=== PATIENT | male | born 1935 | race Caucasian/White ===

== ENCOUNTER 2016-12-18 19:48 | Inpatient (IN) | payer OTHER ==
[2016-12-18] MEDS: FENTANYL INJECTION 500 MCG in DEXTROSE 5%-WATER - 90 ML IJ SCH ×2 (19:15→23:59)
[2016-12-18] MEDS ORDERED: ALBUTEROL SO4 0.083% IH SOL 2.5 MG/3 ML VIAL.NEB. NEB ONE (20:01)
[2016-12-18] MEDS ORDERED: methylPREDNISolone NA SUCC 125 MG/2 ML VIAL IVPB ONE (20:01)
[2016-12-18] MEDS ORDERED: IPRATROPIUM BR 0.02% 0.5 MG/2.5 ML VIAL.NEB. NEB ONE (20:01)
[2016-12-18] MEDS ORDERED: VANCOMYCIN 1,000 MG in DEXTROSE 5%-WATER - 250 ML IVPB ONE (20:04)
[2016-12-18] MEDS ORDERED: PIPERACILLIN/TAZOB 3.375 GM/50 ML PRE-DOCKED IVPB ONE (20:04)
--- NOTE | 2016-12-18 20:26 | PDOC ---
History of Present Illness - History of Present Illness Initial Comments: 12/18/16 20:49 Patient is an 81 year old male with significant medical hx of dementia, COPD, HTN, DM, UTIs, PNA, BPH and CAD who has been sent to the ED via EMS from [facility] for respiratory distress, lethargy, and decreased mental status. Patient was last seen well by niece yesterday who reports that the patient was talkative. Today the patient began becoming increasingly short of breath with labored breathing and decreased mental status. EMS reports that upon arrival the patient's O2Sat was 83% on room air and heart rate in the 100s. Patient is unable to provide history due to lethargy. <Bernadette Salinas - Last Filed: 12/18/16 20:49> <Gregg Garcia - Last Filed: 12/22/16 08:08> - General Stated Complaint: RESPIRATORY Time Seen by Provider: 12/18/16 19:52 Past History <Bernadette Salinas - Last Filed: 12/18/16 20:49> - Past Medical History COPD: Yes Dementia: Yes Diabetes: Yes HTN: Yes - Psycho/Social/Smoking Cessation Hx Anxiety: No Suicidal Ideation: No Smoking History: Unknown if ever smoked Have you smoked in the past 12 months: No Hx Alcohol Use: No Drug/Substance Use Hx: No <Gregg Garcia - Last Filed: 12/22/16 08:08> - Past Medical History Allergies/Adverse Reactions: Allergies Allergy/AdvReac Type Severity Reaction Status Date / Time No Known Allergies Allergy Verified 12/18/16 21:12 Home Medications: Ambulatory Orders Albuterol 0.083% Nebulizer Kalpana [Ventolin 0.083% Nebulizer Soln -] 1 inh IN Q4H PRN 08/19/15 Aspirin [ASA -] 81 mg PO DAILY 08/19/15 Enalapril Maleate [Vasotec -] 5 mg PO DAILY 08/19/15 Fluticasone Propionate [Flovent Hfa] 2 inh IH BID 08/19/15 Insulin Detemir [Levemir Flextouch] 47 unit SQ AM 12/07/15 Acetaminophen [Tylenol] 2 tab PO Q6H PRN 12/09/15 Insulin Aspart [Novolog] 0 unit SQ BID 12/09/15 Insulin Detemir [Levemir Flextouch] 15 unit SQ ACDIN 07/07/16 Tamsulosin HCl [Flomax] 0.4 mg PO DAILY 07/07/16 Review of Systems - Review of Systems Comments:: 12/18/16 20:46 Patient unable to provide ROS. <Bernadette Salinas - Last Filed: 12/18/16 20:49> *Physical Exam - Physical Exam Comments: 12/18/16 20:43 GENERAL: Awake, ill appearing, responsive to tactile stimuli, in moderate distress HEAD: No signs of trauma EYES: PERRLA, EOMI, sclera anicteric, conjunctiva clear ENT: Auricles normal inspection, hearing grossly normal, nares patent, oropharynx clear without exudates. Moist mucosa NECK: Normal ROM, supple, no lymphadenopathy, JVD, or masses LUNGS: Tachypneic to mid twenties. Diminished breath sounds bilaterally. Labored breathing. HEART: Regular rate and rhythm, normal S1 and S2, no murmurs, rubs or gallops ABDOMEN: Soft, nontender, normoactive bowel sounds. No guarding, no rebound. No masses EXTREMITIES: Normal range of motion, no edema. No clubbing or cyanosis. No cords, erythema, or tenderness NEUROLOGICAL: Cranial nerves II through XII grossly intact. Normal speech, normal gait SKIN: Cool to touch. Dry, normal turgor, no rashes or lesions noted. ENDOCRINE: No increased thirst. No abnormal weight change. HEMATOLOGIC/LYMPHATIC: No anemia, easy bleeding, or history of blood clots. ALLERGIC/IMMUNOLOGIC: No hives or skin allergy. <Bernadette Salinas - Last Filed: 12/18/16 20:49> Procedures - Intubation Time of Intubation: 23:15 Intubation Method: orotracheal Blade used: Mac Tube Size (Fr): 7.5 Medications: Etomidate, Succinylcholine Tube position @ lip (cm): 22 Tube position confirmed by: Direct visualization, CO2 detector, Breath sounds Breath Sounds after Intubation: equal Intubation Complications: no complications Post Intubation Xray: Yes (ordered) <Gregg Garcia - Last Filed: 12/22/16 08:08> Heart Score/ECG Review #1 ECG reviewed & interpreted by me at: 20:15 12/18/16 20:26 NSR 95, no std/gus, normal axis, normal intervals, QTC 427 msec <Gregg Garcia - Last Filed: 12/22/16 08:08> ED Treatment Course - RADIOLOGY Radiograph Interpretation: 12/18/16 20:42 Chest X-Ray Impression: Interval mild bibasal atelectatic changes, cannot rule out infiltrates. Reported By: Liliya Hurd MD <Bernadette Salinas - Last Filed: 12/18/16 20:49> - LABORATORY CBC & Chemistry Diagram: 12/19/16 20:40 12/19/16 20:40 - RADIOLOGY Radiology Studies Ordered: Category Date Time Status CHEST X-RAY PORTABLE* [RAD] Stat Radiology 12/18/16 20:00 Completed <Gregg Garcia - Last Filed: 12/22/16 08:08> Medical Decision Making - Medical Decision Making 12/18/16 20:25 A portion of this note was documented by scribe services under my direction. I have reviewed the details of the note, within reason, and agree with the documentation with the following case summary and management plan written by me. Patient treated in the ED. Nursing notes are reviewed and incorporated into the medical decision-making. Vital signs reviewed. Peripheral IV access obtained by the nurse, laboratory studies are drawn and sent, reviewed and interpreted by myself. 81 year old male with past medical history of dementia, hypotension, diabetes, COPD, pneumonia, indwelling Manuel catheter, neurogenic bladder presents by EMS from long-term [facility] for respiratory distress. Patient's niece, Kaylin , healthcare proxy at the bedside. The patient was noted to have increasing respiratory distress today and decreasing mental status. Patient is unable to verbalize any more given his lethargy. The patient is hypertensive and ill-appearing and with hypoxemia. Differential includes COPD exacerbation, hypercapnic respiratory failure, pneumonia, sepsis, septic shock. We'll need to give IV fluids and initiate empiric antibiotics. Nebs, IV site Metro. Patient is ill-appearing and will need consideration for ICU. Patient's mental status is decreased and BiPAP may be difficult option given his mental status. We'll obtain an ABG to assess for his CO2 levels. At this time, we'll observe patient for respiratory status, and if worsens, we'll need to check code status and potentially intubate. 12/18/16 22:25 Chest x-ray reviewed. Interval mild bibasilar atelectatic changes. Cannot rule out infiltrates. CBC, BMP 12/18/16 20:30 12/18/16 20:30 CMP Sodium 142 mmol/L (136-145) 12/18/16 20:30 Potassium 4.6 mmol/L (3.5-5.1) 12/18/16 20:30 Chloride 101 mmol/L (98-107) 12/18/16 20:30 Carbon Dioxide 26 mmol/L (21-32) D 12/18/16 20:30 Anion Gap 15 (8-16) 12/18/16 20:30 BUN 26 mg/dL (7-18) H D 12/18/16 20:30 Creatinine 1.4 mg/dL (0.7-1.3) H D 12/18/16 20:30 Creat Clearance w eGFR 48.64 (>60) 12/18/16 20:30 Random Glucose 99 mg/dL (74-106) D 12/18/16 20:30 Lactic Acid 7.867 mmol/L (0.4-2.0) H* 12/18/16 20:30 Calcium 8.9 mg/dL (8.5-10.1) 12/18/16 20:30 Total Bilirubin 0.9 mg/dL (0.2-1.0) D 12/18/16 20:30 AST 61 U/L (15-37) H D 12/18/16 20:30 ALT 32 U/L (12-78) 12/18/16 20:30 Alkaline Phosphatase 97 U/L (45-117) D 12/18/16 20:30 Creatine Kinase 162 IU/L (39-308) D 12/18/16 20:30 Creatine Kinase Index 1.2 % (0.0-5.0) 12/18/16 20:30 CK-MB (CK-2) 1.916 ng/ml (0.5-3.6) 12/18/16 20: CK-MB (CK-2) Rel Index Cancelled 12/18/16 20:30 Troponin I 0.03 ng/ml (0.00-0.05) D 12/18/16 20:30 B-Natriuretic Peptide 90.46 pg/ml (5-450) 12/18/16 20:30 Total Protein 7.5 g/dl (6.4-8.2) 12/18/16 20:30 Albumin 3.3 g/dl (3.4-5.0) L 12/18/16 20:30 ABG pending. Urine positive for urinary tract infection. Patient was given 2 L of IV fluids which improved the blood pressures to 90s over 60s. Patient's mentation is slightly better and opens eyes to verbal stimuli. However, does not answers questions. The patient will be better off in the intensive care unit. Case discussed with ICU nurse practitioner Dax which is the patient to the hospital for further evaluation. Case discussed with Dr. Hubbard who accepts the patient to his service. At this time, the patient is protecting his airway and will defer on intubation at this time. 12/18/16 23:18 Pt's ABG noted. His mental status will not improving. Likely hypercarbic respiratory failure and metabolic acidosis. Given condition, decision was made to intubate the patient. Given lactic acidosis, pt was given 2 amps of sodium bicarb prior to intubation. Pt given etomidate and succylcholine Grade 1 view with MAC 3 blade on 1st attempt, successfully intubated. Bilateral breath sounds on auscultation and good color change on ETT Portable chest xray ordered. Fetanyl sedation ordered. <Gregg Garcia - Last Filed: 12/22/16 08:08> *DC/Admit/Observation/Transfer - Attestations Scribe Attestion: 12/18/16 20:46 Documentation prepared by Bernadette Salinas, acting as medical records director for Gregg Garcia MD. <Bernadette Salinas - Last Filed: 12/18/16 20:49> - Discharge Dispostion Admit: Yes <Gregg Garcia - Last Filed: 12/22/16 08:08> Diagnosis at time of Disposition: Pneumonia Qualifiers: Pneumonia type: due to unspecified organism Laterality: unspecified laterality Lung location: unspecified part of lung Qualified Code(s): J18.9 - Pneumonia, unspecified organism Sepsis Qualifiers: Sepsis type: sepsis due to unspecified organism Qualified Code(s): A41.9 - Sepsis, unspecified organism UTI (urinary tract infection) Qualifiers: Urinary tract infection type: site unspecified Hematuria presence: without hematuria Qualified Code(s): N39.0 - Urinary tract infection, site not specified - Discharge Dispostion Disposition: Condition at time of disposition: Guarded - Referrals
[2016-12-18] MEDS ORDERED: methylPREDNISolone NA SUCC 125 MG/2 ML VIAL ONE (20:50)
[2016-12-18] MEDS ORDERED: VANCOMYCIN 1 GRAM (PRE-DOCKED) 250 ML IVPB ONE (20:50)
[2016-12-18] MEDS ORDERED: AZITHROMYCIN IVPB 500 MG in DEXTROSE 5%-WATER - 250 ML IVPB ONE (20:52)
[2016-12-18] MEDS ORDERED: SODIUM CHLORIDE 1,000 ML IV SCH (21:00)
[2016-12-18 21:15] LABS: URINE APPEARANCE CLEAR; URINE BILIRUBIN NEGATIVE (NEGATIVE); URINE COLOR YELLOW; URINE GLUCOSE (UA) NEGATIVE (NEGATIVE); URINE KETONE NEGATIVE (NEGATIVE); URINE NITRITE NEGATIVE (NEGATIVE); URINE UROBILINOGEN 2.0 E.U/dl E.U./dl (0.2-1.0)
[2016-12-18 21:16] LABS: MCH 27.3 pg (25.7-33.7); MCHC 30.7 g/dl (32.0-35.9); MEAN CELL VOLUME 89.1 fl (80-96); MEAN PLT VOLUME 7.3 fl (7.5-11.1); PLATELET COUNT 307 K/MM3 (134-434); RDW 16.5 % (11.9-15.9); URINE BLOOD 1+ (NEGATIVE); URINE LEUK ESTERASE 1+ (NEGATIVE); URINE PROTEIN 1+ (NEGATIVE)
[2016-12-18 21:18] LABS: URINE BACTERIA RARE /hpf (NONE SEEN); URINE MUCUS RARE; URINE RBC 23 /hpf (0-3); URINE WBC 28 /hpf (3-5); YEAST FEW
[2016-12-18 21:21] LABS: WHITE BLOOD COUNT 32.8 K/mm3 (4.0-10.0)
[2016-12-18 21:31] LABS: INR 1.31 (0.82-1.09); PROTHROMBIN TIME (PATIENT) 14.5 SEC (9.98-11.88)
[2016-12-18 21:33] LABS: ACTIVATED PTT 31.5 SECONDS (26.9-34.4)
[2016-12-18 21:40] LABS: ALBUMIN 3.3 g/dl (3.4-5.0); BILIRUBIN,TOTAL 0.9 mg/dL (0.2-1.0); CALCIUM 8.9 mg/dL (8.5-10.1); COCKROFT - GAULT 33.45; CREATININE 1.4 mg/dL (0.7-1.3); TOT PROT 7.5 g/dl (6.4-8.2)
[2016-12-18 21:42] LABS: TROPONIN I 0.03 ng/ml (0.00-0.05)
[2016-12-18 22:04] LABS: METAMYELOCYTE 1 % (0-2)
[2016-12-18] MEDS ORDERED: AZITHROMYCIN IVPB 250 ML IVPB ONE (22:04)
[2016-12-18 22:05] LABS: ANISOCYTOSIS 1+; HYPOCHROMIA 1+; PLATELET COMMENT2 NO CLOTTING DETECTED; PLATELET ESTIMATE ADEQUATE (NORMAL)
[2016-12-18] MEDS ORDERED: PIPERACILLIN/TAZOB 3.375 GM 50 ML IVPB ONE (22:05)
[2016-12-18 22:43] LABS: ARTERIAL BLD GAS O2 SATURATION 98.4 % (90-98.9); ARTERIAL BLOOD GAS BASE EXCESS -8.6 meq/l (-2-2); ARTERIAL BLOOD GAS HCO3 21.1 meq/L (22-26)
[2016-12-18 22:44] LABS: ALLENS TEST POSITIVE; ART PUNCT SITE LEFT RADIAL; LPM/O2% 100%; METHEMOGLOBIN 1.2 % (0.4-1.5); PT. ON O2? YES; TYPE OF O2 NONREBREATHER
[2016-12-18] MEDS ORDERED: RAPID SEQUENCE INTUBATION KIT NR ONE (23:00)
[2016-12-18] MEDS ORDERED: SODIUM BICARBONATE 8.4% 50 MEQ/50 ML VIAL ONE ×2 (23:04)
[2016-12-18] MEDS ORDERED: ETOMIDATE 20 MG/10 ML AMPUL IVPUSH ONE (23:16)
[2016-12-18] MEDS ORDERED: SODIUM BICARBONATE 8.4% 50 MEQ/50 ML DISP.SYRIN IVPUSH ONE ×2 (23:16→23:17)
[2016-12-18] MEDS ORDERED: SUCCINYLCHOLINE CHLORIDE 200 MG/10 ML VIAL IVPUSH ONE (23:16)
[2016-12-19] MEDS ORDERED: SODIUM CHLORIDE 1,000 ML IV STA ×2 (00:06→01:31)
[2016-12-19] MEDS ORDERED: DEXTROSE 5%-NORMAL SALINE 1,000 ML IV SCH (00:30)
[2016-12-19 01:45] LABS: ALLENS TEST POSITIVE; ART PUNCT SITE LEFT RADIAL; ARTERIAL BLD GAS O2 SATURATION 99.1 % (90-98.9); ARTERIAL BLOOD GAS BASE EXCESS -8.6 meq/l (-2-2); ARTERIAL BLOOD GAS HCO3 20.7 meq/L (22-26); LPM/O2% 100%; MECH. VENT. YES; PT. ON O2? YES; TYPE OF O2 MECH VENT; VENT RATE 16; VT/PRESS 400
[2016-12-19] MEDS ORDERED: SODIUM CHLORIDE 1,000 ML IV SCH (01:45)
[2016-12-19 01:46] LABS: ARTERIAL BLOOD GAS pH 7.12 (7.35-7.45)
[2016-12-19] MEDS: PANTOPRAZOLE SODIUM 80 MG in SODIUM CHLORIDE 100 ML IVPB SCH ×3 (02:00→22:37)
[2016-12-19] MEDS: FENTANYL INJECTION 500 MCG in DEXTROSE 5%-WATER - 90 ML IJ SCH ×2 (02:00→09:17)
[2016-12-19] MEDS ORDERED: HYDROCORTISONE SOD SUCCINATE 100 MG/2 ML VIAL IVPB SCH (02:00)
--- NOTE | 2016-12-19 02:06 | CONSULT ---
Consult Consult Specialty:: Pulmonary Critical Care Reason for Consultation:: Acute Respiratory Failure s/p intubation. Sepsis - History of Present Illness Chief Complaint: Altered mental status, Increased Work of Breathing, Tachypnea, Hypoxia History of Present Illness: Patient is an 81 year old male with PMHX of COPD, HTN, DM, UTI, PNA, BPH and CAD who has been sent to the ED via EMS from [facility] for respiratory distress, lethargy, and decreased mental status. Patient was last seen well by preeti on who reports that the patient was talkative. On 12/18 the patient began becoming increasingly short of breath with labored breathing and decreased mental status. EMS reports that upon arrival the patient's Spo2 was 83 % on room air and heart rate in the 100s. Patient is unable to provide history due to lethargy. Upon arrival to ED pt was placed on 100% NRB and given nebs and steroids for working dx of pneumonia given physical exam and leukocytosis. ABG obtained which revealed respirtory acidosis with pH of 7.10 and PCO2 of 70. Pt then intubated. CT abd obtained as pt with marked distended abdomen and hypoactive bowel sounds. Pt then transferred to ICU for further medical care. Upon arrival NGT inserted and moderate amount of dark, coffee ground drainage appreciated. NGT placed to low continuous wall suction. NS 1L bolus given for SBP 74 with MAP 50's. Additional IV inserted for more access. Given distended bowel loops on CT scan and marked elevated leukocytosis, flagyl added to double cover anaerobic gut bacteria. - History Source History Provided By: Medical Record Limitations to Obtaining History: Clinical Condition - Alcohol/Substance Use Hx Alcohol Use: No - Smoking History Smoking history: Unknown if ever smoked Have you smoked in the past 12 months: No Home Medications - Allergies Allergies/Adverse Reactions: Allergies Allergy/AdvReac Type Severity Reaction Status Date / Time No Known Allergies Allergy Verified 12/18/16 21:12 - Home Medications Home Medications: Ambulatory Orders Aspirin [ASA -] 81 mg PO DAILY 08/19/15 Enalapril Maleate [Vasotec -] 5 mg PO DAILY 08/19/15 Fluticasone Propionate [Flovent Hfa] 2 inh IH BID 08/19/15 RX: Albuterol 0.083% Nebulizer Kalpana [Ventolin 0.083% Nebulizer Soln -] 1 inh IN Q4H PRN 08/19/15 Insulin Detemir [Levemir Flextouch] 47 unit SQ AM 12/07/15 Acetaminophen [Tylenol] 2 tab PO Q6H PRN 12/09/15 Insulin Aspart [Novolog] 0 unit SQ BID 12/09/15 Insulin Detemir [Levemir Flextouch] 15 unit SQ ACDIN 07/07/16 Tamsulosin HCl [Flomax] 0.4 mg PO DAILY 07/07/16 Physical Exam Vital Signs: Vital Signs Temperature 97.6 F 12/18/16 19:50 Pulse Rate 97 H 12/18/16 19:50 Respiratory Rate 16 12/19/16 01:15 Blood Pressure 84/43 12/18/16 19:50 O2 Sat by Pulse Oximetry (%) 89 L 12/18/16 19:50 Constitutional: Yes: No Distress, Calm, Thin Eyes: Yes: PERRL HENT: Yes: Atraumatic, Normocephalic Neck: Yes: Supple, Trachea Midline Cardiovascular: Yes: Tachycardia, S1, S2 Respiratory: Yes: Diminished, Mechanically Ventilated, Rhonchi, Wheezes Gastrointestinal: Yes: Distention, Hematemesis, Hypoactive Bowel Sounds, Other ( tympanny to percussion) ...Rectal Exam: Yes: WNL Renal/: Yes: Other (Suprapubic catheter present draining dark maria a urine; mucopurlent drainage to insertion site) Extremities: Yes: Cool Edema: No Peripheral Pulses WNL: Yes Integumentary: Yes: Pressure Ulcer (Stage 1), Skin Tear (Excoriation to abdomen and IV insertion site) Neurological: Yes: Other (Sedated) Imaging - Results Chest X-ray: Report Reviewed, Image Reviewed Cat Scan: Image Reviewed (Distended large bowel loops, large fecal bolus in rectal vault) Problem List - Problems (1) Pneumonia Code(s): J18.9 - PNEUMONIA, UNSPECIFIED ORGANISM Qualifiers: Pneumonia type: due to unspecified organism Laterality: unspecified laterality Lung location: unspecified part of lung Qualified Code(s): J18.9 - Pneumonia, unspecified organism (2) Sepsis Code(s): A41.9 - SEPSIS, UNSPECIFIED ORGANISM Qualifiers: Sepsis type: sepsis due to unspecified organism Qualified Code(s): A41.9 - Sepsis, unspecified organism (3) UTI (urinary tract infection) Code(s): N39.0 - URINARY TRACT INFECTION, SITE NOT SPECIFIED Qualifiers: Urinary tract infection type: site unspecified Hematuria presence: without hematuria Qualified Code(s): N39.0 - Urinary tract infection, site not specified (4) Bowel obstruction Code(s): K56.60 - UNSPECIFIED INTESTINAL OBSTRUCTION Qualifiers: Intestinal obstruction type: fecal impaction Qualified Code(s): K56.41 - Fecal impaction (5) Leukocytosis (leucocytosis) Code(s): D72.829 - ELEVATED WHITE BLOOD CELL COUNT, UNSPECIFIED (6) Lactic acid acidosis Code(s): E87.2 - ACIDOSIS (7) Metabolic acidosis Code(s): E87.2 - ACIDOSIS Assessment/Plan A: Patient is an 81 year old male with significant medical hx of dementia, COPD , HTN, DM, UTIs, PNA, BPH and CAD who has been sent to the ED via EMS from [facility] for respiratory distress, lethargy, and decreased mental status. Pt intubated for increased WOB, hypoxia and hypercapneic respiratory failure. Pt subsequently transferred to ICU for further medical care. P: -Fentanyl gtt for RASS (-)2-(-)3 -Vent bundle, VAP prophylaxis -Duonebs q6hrs -serial ABG and adjust vent as needed for goal pH 7.35-7.45 -suction PRN -f/u viral PCR swab and Respiratory culture -repeat troponin x2, if continues to uptrend consider Cardiology Consult -NS @ 100cc/hr maintenance -NS 1 L bolus; if remains hypotensive, will add peripheral dopamine for pressor -OGT to low wall suction -protonix gtt -serial cbc, if hgb<7.0 will transfuse -NPO -fleets enema -Consider GI Consult -Manuel to bsd -bacitracin to suprapubic insertion site -Cont antibiotics, flagyl added given abdominal distention and degree of leukocytosis -f/u cultures and narrow as possible -cont to trend serial lactate -continue sepsis dose steroids -fingersticks blood glucose q6hrs -insulin for goal FSBS 140-180 -heparin for dvt prophylaxis -Turn and position q2hrs as pt with Stage 1 pressure ulcer from outside facility Thank you for this interesting consult. Pt is critically ill. CCT 45 mins not including procedures
[2016-12-19 02:24] LABS: ARTERIAL BLD GAS O2 SATURATION 95.5 % (90-98.9); ARTERIAL BLOOD GAS BASE EXCESS -9.3 meq/l (-2-2)
[2016-12-19 02:25] LABS: ALLENS TEST POSITIVE; ART PUNCT SITE LEFT RADIAL; ARTERIAL BLOOD GAS pH 7.17 (7.35-7.45); LPM/O2% 60%; MECH. VENT. YES; PT. ON O2? YES; TYPE OF O2 MECH VENT; VENT RATE 30; VT/PRESS 400
[2016-12-19 02:26] LABS: ARTERIAL BLOOD GAS HCO3 18.6 meq/L (22-26)
[2016-12-19] MEDS: HYDROCORTISONE SOD SUCCINATE 100 MG/2 ML VIAL IVPB SCH ×4 (02:40→19:45)
[2016-12-19] MEDS: METRONIDAZOLE 500 MG PREMIXED 100 ML IVPB SCH ×3 (03:00→17:19)
[2016-12-19] MEDS: DOPAMINE 400 MG/D5W - 250 ML IVPB SCH ×2 (03:05→18:27)
[2016-12-19] MEDS ORDERED: SODIUM CHLORIDE 500 ML IV STA ×2 (03:05→04:31)
[2016-12-19 03:19] LABS: MCH 27.5 pg (25.7-33.7); MCHC 30.2 g/dl (32.0-35.9); MEAN CELL VOLUME 91.1 fl (80-96); MEAN PLT VOLUME 7.5 fl (7.5-11.1); PLATELET COUNT 208 K/MM3 (134-434); RDW 16.6 % (11.9-15.9); WHITE BLOOD COUNT 16.3 K/mm3 (4.0-10.0)
[2016-12-19 03:41] LABS: ALBUMIN 2.4 g/dl (3.4-5.0); BILIRUBIN,TOTAL 1.1 mg/dL (0.2-1.0); CALCIUM 7.1 mg/dL (8.5-10.1); CREATININE 1.4 mg/dL (0.7-1.3); TOT PROT 5.3 g/dl (6.4-8.2)
[2016-12-19] MEDS ORDERED: SODIUM PHOSPHATE/NA BIPHOS 133 ML ENEMA PR ONE (03:57)
[2016-12-19] MEDS ORDERED: MINERAL OIL ENEMA 133 ML ENEMA PR ONE (03:57)
[2016-12-19 06:30] LABS: MCH 27.7 pg (25.7-33.7); MCHC 30.9 g/dl (32.0-35.9); MEAN CELL VOLUME 89.7 fl (80-96); MEAN PLT VOLUME 7.5 fl (7.5-11.1); PLATELET COUNT 235 K/MM3 (134-434); RDW 16.4 % (11.9-15.9)
[2016-12-19] MEDS: ALBUTEROL SO4 2.5/IPRATROPIUM 0.5 INH SOL 3 ML VIAL.NEB. NEB SCH ×3 (06:30→18:09)
[2016-12-19 07:10] LABS: ALBUMIN 2.4 g/dl (3.4-5.0); BILIRUBIN,TOTAL 1.3 mg/dL (0.2-1.0); CALCIUM 7.1 mg/dL (8.5-10.1); CREATININE 1.6 mg/dL (0.7-1.3); TOT PROT 5.4 g/dl (6.4-8.2)
[2016-12-19 07:41] LABS: ARTERIAL BLD GAS O2 SATURATION 94.3 % (90-98.9); ARTERIAL BLOOD GAS BASE EXCESS -11.3 meq/l (-2-2); ARTERIAL BLOOD GAS HCO3 16.9 meq/L (22-26)
[2016-12-19 07:50] LABS: ALLENS TEST POSITIVE; ART PUNCT SITE LEFT RADIAL; LPM/O2% 70%; MECH. VENT. ESPRIT; PT. ON O2? YES; TYPE OF O2 MEC.VENT
[2016-12-19 07:51] LABS: VENT RATE 14; VT/PRESS 400
[2016-12-19 07:56] LABS: ARTERIAL BLOOD GAS pH 7.14 (7.35-7.45)
--- NOTE | 2016-12-19 08:02 | CON.CARD ---
Consult Consult Specialty:: Cardiology Referred by:: Dr. Hubbard Reason for Consultation:: hypotension - History of Present Illness History of Present Illness: History was obtained by EMR. Pt is intubated and sedated. 81 year old male with PMHX of COPD, HTN, DM, UTI, PNA, BPH and reportedly CAD who has been sent to the ED via EMS from [facility] for respiratory distress, lethargy, and decreased mental status. Patient was last seen well by nireema on who reports that the patient was talkative. On 12/18 the patient began becoming increasingly short of breath with labored breathing and decreased mental status. EMS reports that upon arrival the patient's Spo2 was 83% on room air and heart rate in the 100s. He was hypoxic, ABG showed lactic acidosis and he was intubated. ABG obtained which revealed respirtory acidosis with pH of 7.10 and PCO2 of 70. CT abd obtained as pt with marked distended abdomen and hypoactive bowel sounds. Pt then transferred to ICU for further medical care. NGT showed moderate amount of dark, coffee ground drainage appreciated. Currently, he is on Dopamine 10mcg/kg/min. Fentanyl. Telemetry shows sinus tachycardia - History Source History Provided By: Medical Record - Past Medical History Cardio/Vascular: Yes: CAD Pulmonary: Yes: COPD Renal/: Yes: UTI Endocrine: Yes: Diabetes Mellitus - Alcohol/Substance Use Hx Alcohol Use: No - Smoking History Smoking history: Unknown if ever smoked Have you smoked in the past 12 months: No Home Medications - Allergies Allergies/Adverse Reactions: Allergies Allergy/AdvReac Type Severity Reaction Status Date / Time No Known Allergies Allergy Verified 12/18/16 21:12 - Home Medications Home Medications: Ambulatory Orders Albuterol 0.083% Nebulizer Kalpana [Ventolin 0.083% Nebulizer Soln -] 1 inh IN Q4H PRN 08/19/15 Aspirin [ASA -] 81 mg PO DAILY 08/19/15 Enalapril Maleate [Vasotec -] 5 mg PO DAILY 08/19/15 Fluticasone Propionate [Flovent Hfa] 2 inh IH BID 08/19/15 Insulin Detemir [Levemir Flextouch] 47 unit SQ AM 12/07/15 Acetaminophen [Tylenol] 2 tab PO Q6H PRN 12/09/15 Insulin Aspart [Novolog] 0 unit SQ BID 12/09/15 Insulin Detemir [Levemir Flextouch] 15 unit SQ ACDIN 07/07/16 Tamsulosin HCl [Flomax] 0.4 mg PO DAILY 07/07/16 Family Disease History - Family Disease History Family History: Unable to Obtain Review of Systems Unable to obtain ROS, reason: Intubated. Unresponsive Vital Signs: Vital Signs Temperature 95.8 F L 12/19/16 06:30 Pulse Rate 117 H 12/19/16 06:30 Respiratory Rate 21 12/19/16 06:47 Blood Pressure 108/84 12/19/16 06:30 O2 Sat by Pulse Oximetry (%) 90 L 12/19/16 04:00 Constitutional: Yes: Well Nourished Neck: Yes: WNL Respiratory: Yes: Regular, CTA Bilaterally, Mechanically Ventilated Gastrointestinal: Yes: Distention, Hypoactive Bowel Sounds Renal/: Yes: WNL Cardiovascular: Yes: Tachycardia JVD: No Carotid Bruit: No Heart Sounds: Yes: S1, S2 Edema: No (Warm) - Other Data Labs, Other Data: CBC, BMP 12/19/16 05:30 12/19/16 05:30 INR, PTT INR 1.31 (0.82-1.09) H 12/18/16 20:30 Troponin, BNP 12/18/16 12/18/16 20:30 20:30 Troponin I 0.03 D B-Natriuretic Peptide 90.46 ABG and lactate from this morning was reviewed. NSR no STT changes Imaging - Results Chest X-ray: Report Reviewed Cat Scan: Other (Report in chart noted.) EKG: Image Reviewed Problem List - Problems (1) Bowel obstruction Code(s): K56.60 - UNSPECIFIED INTESTINAL OBSTRUCTION Qualifiers: Intestinal obstruction type: fecal impaction Qualified Code(s): K56.41 - Fecal impaction (2) Lactic acid acidosis Code(s): E87.2 - ACIDOSIS (3) Leukocytosis (leucocytosis) Code(s): D72.829 - ELEVATED WHITE BLOOD CELL COUNT, UNSPECIFIED (4) Sepsis Code(s): A41.9 - SEPSIS, UNSPECIFIED ORGANISM Qualifiers: Sepsis type: sepsis due to unspecified organism Qualified Code(s): A41.9 - Sepsis, unspecified organism Assessment/Plan 81 M with sepsis, significant metabolic acidosis and possibly bowel obstruction or PNA. There is a reported history of CAD although not active at this time.ECG at presentation is normal and Telemetry shows no arrhythmias. Initial cardiac markers are normal. He remains hypotensive with Dopamine and would suggest switching to phenylephrine or vasopressin for more appropriate pressor support. Continue broad spectrum antibiotics for possible bowel source and follow abdominal imaging. Will see as needed.
--- NOTE | 2016-12-19 14:34 | CON.NEP ---
Consult Consult Specialty:: Nephrology Referred by:: Dr Hubbard Reason for Consultation:: NED - History of Present Illness History of Present Illness: 81 year old male from the [facility] admitted to the ICU and of now on ventilator and pressors. Pt being treated for ileus and possible infiltrates as seen on CT Scan that was done with IV and Oral contrast. PMHX of COPD, HTN, DM, UTI, PNA, BPH and CAD Dopamine at 13 mcg/kg/min Fio2 at 70% Urine output poor Pt was on Enalapril at the SNF Kidneys appeared normal and castelan was in the U bladder on the Ct Scan - History Source History Provided By: Medical Record Limitations to Obtaining History: Intubated - Past Medical History Cardio/Vascular: Yes: CAD Pulmonary: Yes: COPD Renal/: Yes: UTI Endocrine: Yes: Diabetes Mellitus - Alcohol/Substance Use Hx Alcohol Use: No - Smoking History Smoking history: Unknown if ever smoked Have you smoked in the past 12 months: No Home Medications - Allergies Allergies/Adverse Reactions: Allergies Allergy/AdvReac Type Severity Reaction Status Date / Time No Known Allergies Allergy Verified 12/18/16 21:12 - Home Medications Home Medications: Ambulatory Orders Albuterol 0.083% Nebulizer Kalpana [Ventolin 0.083% Nebulizer Soln -] 1 inh IN Q4H PRN 08/19/15 Aspirin [ASA -] 81 mg PO DAILY 08/19/15 Enalapril Maleate [Vasotec -] 5 mg PO DAILY 08/19/15 Fluticasone Propionate [Flovent Hfa] 2 inh IH BID 08/19/15 Insulin Detemir [Levemir Flextouch] 47 unit SQ AM 12/07/15 Acetaminophen [Tylenol] 2 tab PO Q6H PRN 12/09/15 Insulin Aspart [Novolog] 0 unit SQ BID 12/09/15 Insulin Detemir [Levemir Flextouch] 15 unit SQ ACDIN 07/07/16 Tamsulosin HCl [Flomax] 0.4 mg PO DAILY 07/07/16 Nephrology Consult - Height Height: 5 ft - Weight Weight: 136 lb 10.986 oz - BMI Body Mass Index (BMI): 26.6 - Lab Results CBC,BMP: CBC, BMP 12/19/16 05:30 12/19/16 05:30 Laboratory Tests 12/18/16 12/18/1612/19/17 20:30 20:30 05:30 WBC 32.8 H* D Band Neutrophils 22.0 H INR 1.31 H PTT (Actin FS) 31.5 ABG pH ABG pCO2 at Pt Temp ABG pO2 at Pt Temp ABG HCO3 ABG O2 Sat (Measured) Oxygen Flow Rate Lactic Acid 7.970 H* Calcium AST ALT Alkaline Phosphatase Total Protein Albumin 12/19/16 12/19/16 05:30 07:30 WBC Band Neutrophils INR PTT (Actin FS) ABG pH 7.14 L* ABG pCO2 at Pt Temp 51.6 H ABG pO2 at Pt Temp 107.0 H ABG HCO3 16.9 L ABG O2 Sat (Measured) 94.3 Oxygen Flow Rate 70% Lactic Acid Calcium 7.1 L AST 131 H D ALT 45 D Alkaline Phosphatase 63 Total Protein 5.4 L Albumin 2.4 L U/A: Laboratory Tests 12/18/16 20:30 Urine Color Yellow Urine Appearance Clear Ur Specific Preston 1.015 Urine Protein 1+ H Urine Blood 1+ H Ur Leukocyte Esterase 1+ H Urine RBC 23 Urine WBC 28 Anion Gap: Anion Gap Anion Gap 18 (8-16) H 12/19/16 05:30 - Imaging Chest X-ray: Report Reviewed X-ray: Report Reviewed Cat Scan: Report Reviewed EKG: Report Reviewed - Physical Examination Vital Signs: Vital Signs Temperature 98.2 F 12/19/16 13:55 Pulse Rate 123 H 12/19/16 13:55 Respiratory Rate 28 H 12/19/16 14:01 Blood Pressure 87/53 12/19/16 13:55 O2 Sat by Pulse Oximetry (%) 90 L 12/19/16 04:00 Constitutional: Yes: No Distress Cardiovascular: Yes: S1, S2 Respiratory: Yes: Other (Equal air entry B/L) Gastrointestinal: Yes: Other (Distended and soft) Edema: LLE: 1+, RLE: 1+ Neurological: Yes: Unresponsive Assessment/Plan Impression NED from septic shock in addition possible IV contrast use Sepsis from intraabdominal source and pneumonia Respiratory failure in pt with COPD and infiltrates Resp and Metabolic Acidosis HTN now hypotensive DM BPH CAD Anemia Hypocalcemia borderline when corrected Plan Urine for Spot Na and Cr Calcium Chloride IV X1 Add NaHCO3 to IVF but change to 1/2 NS with 2 ampules of NAHCO3 to each liter Renal and U Bladder US Avoid Nephrotoxic agents such as NSAIDs , further IV contrast etc Is and Os Await culture results Emipirc abx Thank You WIll follow Dr Lam
[2016-12-19 14:35] VITALS: BMI 26.6
[2016-12-19] MEDS ORDERED: CALCIUM CHLORIDE 10% 1 GM/10 ML *VIAL IVPUSH ONE (14:58)
[2016-12-19] MEDS ORDERED: CALCIUM CHLORIDE 1 GM/10 ML *DISP.SYRIN IVPUSH ONE ×2 (14:58→17:45)
--- NOTE | 2016-12-19 16:50 | HP ---
Admitting History and Physical - Primary Care Physician PCP: Hi Hubbard - Admission Chief Complaint: RESP DISTRESS/SEPSIS/PNA/UTI History of Present Illness: Patient is an 81 year old male with significant medical hx of dementia, COPD, HTN, DM, UTIs, PNA, BPH and CAD who has been sent to the ED via EMS from [facility] for respiratory distress, lethargy, and decreased mental status. Patient was last seen well by niece yesterday who reports that the patient was talkative. Today the patient began becoming increasingly short of breath with labored breathing and decreased mental status. EMS reports that upon arrival the patient's O2Sat was 83% on room air and heart rate in the 100s. Patient is unable to provide history due to lethargy. History Source: Medical Record - Past Medical History Cardiovascular: Yes: CAD Pulmonary: Yes: COPD Renal/: Yes: UTI Endocrine: Yes: Diabetes Mellitus - Smoking History Smoking history: Unknown if ever smoked Have you smoked in the past 12 months: No - Alcohol/Substance Use Hx Alcohol Use: No Home Medications - Allergies Allergies/Adverse Reactions: Allergies Allergy/AdvReac Type Severity Reaction Status Date / Time No Known Allergies Allergy Verified 12/18/16 21:12 - Home Medications Home Medications: Ambulatory Orders Albuterol 0.083% Nebulizer Kalpana [Ventolin 0.083% Nebulizer Soln -] 1 inh IN Q4H PRN 08/19/15 Aspirin [ASA -] 81 mg PO DAILY 08/19/15 Enalapril Maleate [Vasotec -] 5 mg PO DAILY 08/19/15 Fluticasone Propionate [Flovent Hfa] 2 inh IH BID 08/19/15 Insulin Detemir [Levemir Flextouch] 47 unit SQ AM 12/07/15 Acetaminophen [Tylenol] 2 tab PO Q6H PRN 12/09/15 Insulin Aspart [Novolog] 0 unit SQ BID 12/09/15 Insulin Detemir [Levemir Flextouch] 15 unit SQ ACDIN 07/07/16 Tamsulosin HCl [Flomax] 0.4 mg PO DAILY 07/07/16 Review of Systems - Review of Systems Constitutional: reports: Lethargy Eyes: reports: No Symptoms HENT: reports: No Symptoms Neck: reports: No Symptoms Cardiovascular: reports: Shortness of Breath Respiratory: reports: SOB Gastrointestinal: reports: No Symptoms Genitourinary: reports: Incontinence Musculoskeletal: reports: Muscle Weakness Integumentary: reports: Other Neurological: reports: Pre-Existing Deficit Endocrine: reports: Other Hematology/Lymphatic: reports: Other Psychiatric: reports: Other Physical Examination Vital Signs: Vital Signs Temperature 98.2 F 12/19/16 13:55 Pulse Rate 123 H 12/19/16 13:55 Respiratory Rate 28 H 12/19/16 14:01 Blood Pressure 87/53 12/19/16 13:55 O2 Sat by Pulse Oximetry (%) 96 12/19/16 16:03 Constitutional: Yes: Severe Distress Eyes: Yes: WNL HENT: Yes: WNL Neck: Yes: WNL Cardiovascular: Yes: Tachycardia, Pulse Irregular Respiratory: Yes: Mechanically Ventilated Gastrointestinal: Yes: WNL Renal/: Yes: Manuel Present Musculoskeletal: Yes: Muscle Weakness Extremities: Yes: Other Edema: Yes Edema: LLE: Trace, RLE: Trace Peripheral Pulses WNL: Yes Integumentary: Yes: Rash, Venous Stasis Changes Wound/Incision: Yes: Dressing Dry and Intact Neurological: Yes: Pre-Existing Deficit ...Motor Strength: LLE, RLE Psychiatric: Yes: Other Labs: CBC, BMP 12/19/16 05:30 12/19/16 05:30 Imaging - Results Chest X-ray: Report Reviewed Cat Scan: Report Reviewed Problem List - Problems (1) Lactic acid acidosis Code(s): E87.2 - ACIDOSIS (2) Leukocytosis (leucocytosis) Code(s): D72.829 - ELEVATED WHITE BLOOD CELL COUNT, UNSPECIFIED (3) Metabolic acidosis Code(s): E87.2 - ACIDOSIS (4) Pneumonia Code(s): J18.9 - PNEUMONIA, UNSPECIFIED ORGANISM Qualifiers: Pneumonia type: due to unspecified organism Laterality: unspecified laterality Lung location: unspecified part of lung Qualified Code(s): J18.9 - Pneumonia, unspecified organism (5) Sepsis Code(s): A41.9 - SEPSIS, UNSPECIFIED ORGANISM Qualifiers: Sepsis type: sepsis due to unspecified organism Qualified Code(s): A41.9 - Sepsis, unspecified organism (6) UTI (urinary tract infection) Code(s): N39.0 - URINARY TRACT INFECTION, SITE NOT SPECIFIED Qualifiers: Urinary tract infection type: site unspecified Hematuria presence: without hematuria Qualified Code(s): N39.0 - Urinary tract infection, site not specified (7) Respiratory distress Code(s): R06.00 - DYSPNEA, UNSPECIFIED Assessment/Plan INTUBATED SEDATED IV FLUIDS IV ABX SEPSIS PNA PULMONARY CONSULT ID CONSULT RENAL F/U GRAVE CONDITION
--- NOTE | 2016-12-19 16:59 | CONSULT ---
Consult Consult Specialty:: infectious diseases Reason for Consultation:: septic shock - History of Present Illness History of Present Illness: History was obtained by EMR. Pt is intubated and sedated. 81 year old male with PMHX of COPD, HTN, DM, UTI, PNA, BPH and reportedly CAD who has been sent to the ED via EMS from [facility] for respiratory distress, lethargy, and decreased mental status. Patient was last seen well by preeti on who reports that the patient was talkative. On 12/18 the patient began becoming increasingly short of breath with labored breathing and decreased mental status. EMS reports that upon arrival the patient's Spo2 was 83% on room air and heart rate in the 100s. He was hypoxic, ABG showed lactic acidosis and he was intubated. ABG obtained which revealed respirtory acidosis with pH of 7.10 and PCO2 of 70. CT abd obtained as pt with marked distended abdomen and hypoactive bowel sounds. patient now in icu on dopamine drip patient has suprapubic foleys catheter - History Source History Provided By: Medical Record Limitations to Obtaining History: Clinical Condition - Past Medical History Cardio/Vascular: Yes: CAD Pulmonary: Yes: COPD Renal/: Yes: UTI Endocrine: Yes: Diabetes Mellitus - Alcohol/Substance Use Hx Alcohol Use: No - Smoking History Smoking history: Unknown if ever smoked Have you smoked in the past 12 months: No Home Medications - Allergies Allergies/Adverse Reactions: Allergies Allergy/AdvReac Type Severity Reaction Status Date / Time No Known Allergies Allergy Verified 12/18/16 21:12 - Home Medications Home Medications: Ambulatory Orders Albuterol 0.083% Nebulizer Kalpana [Ventolin 0.083% Nebulizer Soln -] 1 inh IN Q4H PRN 08/19/15 Aspirin [ASA -] 81 mg PO DAILY 08/19/15 Enalapril Maleate [Vasotec -] 5 mg PO DAILY 08/19/15 Fluticasone Propionate [Flovent Hfa] 2 inh IH BID 08/19/15 Insulin Detemir [Levemir Flextouch] 47 unit SQ AM 12/07/15 Acetaminophen [Tylenol] 2 tab PO Q6H PRN 12/09/15 Insulin Aspart [Novolog] 0 unit SQ BID 12/09/15 Insulin Detemir [Levemir Flextouch] 15 unit SQ ACDIN 07/07/16 Tamsulosin HCl [Flomax] 0.4 mg PO DAILY 07/07/16 Review of Systems Unable to obtain ROS, reason: unable to obtain Physical Exam Vital Signs: Vital Signs Temperature 98.2 F 12/19/16 13:55 Pulse Rate 123 H 12/19/16 13:55 Respiratory Rate 28 H 12/19/16 16:08 Blood Pressure 87/53 12/19/16 13:55 O2 Sat by Pulse Oximetry (%) 96 12/19/16 16:03 Constitutional: Yes: Other Eyes: Yes: Conjunctiva Clear Neck: Yes: Supple Cardiovascular: Yes: S1, S2 Respiratory: Yes: Intubated, Mechanically Ventilated, Poor Air Entry Gastrointestinal: Yes: Distention, Tenderness, Other (tympaninc distended abdomen) Musculoskeletal: Yes: WNL Extremities: Yes: WNL Neurological: Yes: Other Psychiatric: Yes: Other Labs: CBC, BMP 12/19/16 05:30 12/19/16 05:30 Imaging - Results Chest X-ray: Report Reviewed, Image Reviewed Cat Scan: Report Reviewed, Image Reviewed Assessment/Plan this patient has intestinal ischemia the exact cause i do not know but i suspect low flow state is going on currently patient is critical and i have started patient on abx also chances that patient has uti Problem List - Problems (1) Pneumonia Code(s): J18.9 - PNEUMONIA, UNSPECIFIED ORGANISM Qualifiers: Pneumonia type: due to unspecified organism Laterality: unspecified laterality Lung location: unspecified part of lung Qualified Code(s): J18.9 - Pneumonia, unspecified organism (2) Sepsis Code(s): A41.9 - SEPSIS, UNSPECIFIED ORGANISM Qualifiers: Sepsis type: sepsis due to unspecified organism Qualified Code(s): A41.9 - Sepsis, unspecified organism (3) UTI (urinary tract infection) Code(s): N39.0 - URINARY TRACT INFECTION, SITE NOT SPECIFIED Qualifiers: Urinary tract infection type: site unspecified Hematuria presence: without hematuria Qualified Code(s): N39.0 - Urinary tract infection, site not specified (4) Bowel obstruction Code(s): K56.60 - UNSPECIFIED INTESTINAL OBSTRUCTION Qualifiers: Intestinal obstruction type: fecal impaction Qualified Code(s): K56.41 - Fecal impaction (5) Leukocytosis (leucocytosis) Code(s): D72.829 - ELEVATED WHITE BLOOD CELL COUNT, UNSPECIFIED (6) Lactic acid acidosis Code(s): E87.2 - ACIDOSIS (7) Metabolic acidosis Code(s): E87.2 - ACIDOSIS plan continue flagyl for now i have started patient on zosyn crucial will be hydration continue monitoring closely i might stop flagyl and zosyn and switch ot meropenam if patient does not show improvement also looking at the ct scan i am abit worried if he could have cdiff and that is why we will continue flagyl for now if patient has dirrhoea send for cdiff cc time 50 min
[2016-12-19] MEDS: SODIUM CHLORIDE 0.45% 1,000 ML with SODIUM BICARBONATE 8.4% - 100 MEQ IV SCH (17:25)
[2016-12-19] MEDS ORDERED: PIPERACILLIN/TAZOB 3.375 GM 3.375 GM in DEXTROSE 5%-WATER - 50 ML IVPB SCH (18:00)
[2016-12-19] MEDS: PIPERACILLIN/TAZOB 3.375 GM 50 ML IVPB SCH (19:00)
[2016-12-19 21:01] LABS: MCH 27.5 pg (25.7-33.7); MCHC 30.4 g/dl (32.0-35.9); MEAN CELL VOLUME 90.5 fl (80-96); MEAN PLT VOLUME 8.6 fl (7.5-11.1); PLATELET COUNT 168 K/MM3 (134-434); RDW 16.9 % (11.9-15.9); WHITE BLOOD COUNT 18.7 K/mm3 (4.0-10.0)
[2016-12-19] MEDS ORDERED: VASOPRESSIN 20 UNITS/ML VIAL IV ONE (21:26)
[2016-12-19 21:41] LABS: ARTERIAL BLOOD GAS BASE EXCESS -14.3 meq/l (-2-2)
[2016-12-19 21:42] LABS: ALLENS TEST POSITIVE; ART PUNCT SITE ARTERIAL LINE; LPM/O2% 100%; MECH. VENT. YES; PT. ON O2? YES; TYPE OF O2 MECH VENT; VENT RATE 20; VT/PRESS 400
[2016-12-19 21:43] LABS: ARTERIAL BLOOD GAS HCO3 14.3 meq/L (22-26)
[2016-12-19] MEDS ORDERED: NOREPINEPHRINE BITARTRATE 4 MG/4 ML ML IV ONE ×2 (21:46→21:53)
[2016-12-19 22:05] LABS: INR 1.66 (0.82-1.09); PROTHROMBIN TIME (PATIENT) 18.4 SEC (9.98-11.88)
[2016-12-19 22:08] LABS: ACTIVATED PTT 42.1 SECONDS (26.9-34.4)
--- NOTE | 2016-12-19 22:24 | PROC ---
Central Line Insertion Indication: Vasopressor Risks and Benefits Explained: Yes (neice/primary surrogate) Consent on Chart: Yes (niece/primary surrogate) Central Line: Triple Lumen Catheter Anesthesia: 1% Lidocaine Sterile Technique: Yes Ultrasound Guided Assistance: Yes Position: Right Internal Jugular Post Insertion: Yes: Chest X-Ray Ordered Sterile Dressing Applied: Yes
[2016-12-19] MEDS ORDERED: WATER IV SCH ×2 (22:30)
[2016-12-19] MEDS ORDERED: NOREPINEPHRINE BITARTRATE IV SCH ×2 (22:30)
[2016-12-19] MEDS ORDERED: DEXTROSE 5% IV SCH ×2 (22:30)
[2016-12-19 22:35] LABS: ALBUMIN 1.9 g/dl (3.4-5.0); BILIRUBIN,DIRECT 0.4 mg/dL (0.0-0.2); BILIRUBIN,TOTAL 0.8 mg/dL (0.2-1.0); CALCIUM 7.7 mg/dL (8.5-10.1); CREATININE 2.8 mg/dL (0.7-1.3); MAGNESIUM 2.8 mg/dL (1.8-2.4); PHOSPHOROUS 8.9 mg/dL (2.5-4.9); TOT PROT 4.5 g/dl (6.4-8.2)
--- NOTE | 2016-12-19 23:01 | PN ---
Progress Note (short form) - Note Progress Note: Called to Bedside by RN at 7pm for labile Non invasive BP. On exam pt agonally breathing despite mechanical ventilation. Vasopressors increased, volume given, vent adjusted for synchrony and placed on 100% fio2. Spoke to niece via phone regarding pt deterioration. Explained the unlikelyhood of survival despite our efforts. She asked that at this time every measure be taken to support Cal with understanding that those efforts may fail. After informed consent a L axillary payton and a RIJ TLC cath were placed. New labs sent showing doubling of Cr, severe mixed resp and metabolic acidosis. pH of 7.1, lactate 8. Dopamine changed to levo and vasopressin added. 11pm Update: I will reached back out to family in am as it appears Mr Benton is likely to continue to deteriorate. He is anuric and renal replacement would be neither tolerated nor medically appropriate. I spoke to Niece/Surrogate of highest order Kaylin Benton (states is his only family and one who has been caring for him) at [phone] at 11pm. We discussed his condition and goals of care. In light of his rapid deterioration and prognosis it was decided to focus on comfort as our primary goal and not to escalate current therapies. No increase in vasopressors or vent support, no renal replacement, no heroic measures/cpr when mr Benton heart stopped. All questions were answered. Pt now DNR. Attending Gabriel to be notified. Sameer Diallo [facility]. [id number]
[2016-12-19] MEDS ORDERED: VASOPRESSIN 50 UNITS in SODIUM CHLORIDE 97.5 ML IVPB SCH (23:30)
[2016-12-20] MEDS: METRONIDAZOLE 500 MG PREMIXED 100 ML IVPB SCH (01:09)
[2016-12-20] MEDS: PIPERACILLIN/TAZOB 3.375 GM 50 ML IVPB SCH (01:09)
[2016-12-20] MEDS: HYDROCORTISONE SOD SUCCINATE 100 MG/2 ML VIAL IVPB SCH (01:09)
[2016-12-20] MEDS: SODIUM CHLORIDE 0.45% 1,000 ML with SODIUM BICARBONATE 8.4% - 100 MEQ IV SCH (02:00)
[2016-12-20] MEDS ORDERED: DOPAMINE 400 MG/D5W - 250 ML IVPB ONE (02:52)
[2016-12-20] MEDS: ALBUTEROL SO4 2.5/IPRATROPIUM 0.5 INH SOL 3 ML VIAL.NEB. NEB SCH ×2 (06:00)
[2016-12-20] MEDS: FENTANYL INJECTION 500 MCG in DEXTROSE 5%-WATER - 90 ML IJ SCH (06:30)
[2016-12-20 07:09] VITALS: TEMP 99.8
[2016-12-20 07:11] VITALS: BP 75/34; PULSE 94
[2016-12-20 07:46] LABS: ARTERIAL BLD GAS O2 SATURATION 98.1 % (90-98.9); ARTERIAL BLOOD GAS BASE EXCESS -13.5 meq/l (-2-2)
[2016-12-20 07:49] LABS: ART PUNCT SITE ARTERIAL LINE; LPM/O2% 100%; MECH. VENT. ESPRIT; PT. ON O2? YES; TYPE OF O2 MEC.VENT; VENT RATE 20; VT/PRESS 400
[2016-12-20 07:50] LABS: ARTERIAL BLOOD GAS pH 7.14 (7.35-7.45)
[2016-12-20 07:51] LABS: ARTERIAL BLOOD GAS HCO3 14.3 meq/L (22-26)
--- NOTE | 2016-12-20 08:33 | HOSP ---
Subjective - Review of Symptoms Events since last encounter: Called to see patient for unresponsiveness. On exam the patient did not respond to verbal or physical stimuli. Absent heart and breath sounds . Absent peripheral pulses. Pupils are fixed and dilated. Patient pronounced at 07: [address] Hubbard notified by nurse Shelli. Patient was DNR/DNI Physical Examination Vital Signs: Labs: CBC, BMP 12/19/16 20:40 12/19/16 20:40 Visit type - Emergency Visit Emergency Visit: Yes ED Registration Date: 12/18/16 Care time: The patient presented to the Emergency Department on the above date and was hospitalized for further evaluation of their emergent condition. - New Patient This patient is new to me today: Yes Date on this admission: 12/20/16 - Critical Care Critical Care patient: No
--- NOTE | 2016-12-21 12:51 | EKG ---
Test Reason : Blood Pressure : / mmHG Vent. Rate : 199 BPM Atrial Rate : 108 BPM P-R Int : 000 ms QRS Dur : 064 ms QT Int : 226 ms P-R-T Axes : 000 011 051 degrees QTc Int : 411 ms SINUS TACHYCARDIA LOW VOLTAGE QRS NONSPECIFIC T WAVE ABNORMALITY ABNORMAL ECG WHEN COMPARED WITH ECG OF 18-DEC-2016 20:13, NO SIGNIFICANT CHANGE WAS FOUND Confirmed by JEREMIAS MICHAELS MD ([id number]) on 12/21/2016 12:50:55 PM Referred By: Confirmed By:JEREMIAS MICHAELS MD
--- NOTE | 2016-12-21 12:53 | EKG ---
Test Reason : Blood Pressure : / mmHG Vent. Rate : 095 BPM Atrial Rate : 095 BPM P-R Int : 122 ms QRS Dur : 074 ms QT Int : 340 ms P-R-T Axes : 052 -02 060 degrees QTc Int : 427 ms NORMAL SINUS RHYTHM NORMAL ECG WHEN COMPARED WITH ECG OF 07-DEC-2015 07:40, NO SIGNIFICANT CHANGE WAS FOUND Confirmed by JEREMIAS MICHAELS MD ([id number]) on 12/21/2016 12:52:54 PM Referred By: Confirmed By:JEREMIAS MICHAELS MD
== END 2016-12-20 07:40 | disposition expired | DRG 871 ==
LOC: JER 19:48 → JERBED 22:27 → UNDOADMIN 23:17 → JERBED 23:17 → JICU 12-19 01:28
PROVIDERS: ADMIT Family Medicine; ATTEND Family Medicine
PROC: 5A1945Z Respiratory Ventilation, 24-96 Consecutive Hours (ICD-10-PCS; principal; 2016-12-18)
PROC: 0BH17EZ Insertion of Endotracheal Airway into Trachea, Via Natural or Artificial Opening (ICD-10-PCS; 2016-12-18)
PROC: 0D9670Z Drainage of Stomach with Drainage Device, Via Natural or Artificial Opening (ICD-10-PCS; 2016-12-18)
PROC: 05HM33Z Insertion of Infusion Device into Right Internal Jugular Vein, Percutaneous Approach (ICD-10-PCS; 2016-12-19)
PROC: 03HY32Z Insertion of Monitoring Device into Upper Artery, Percutaneous Approach (ICD-10-PCS; 2016-12-19)
DX: A41.9 Sepsis, unspecified organism (principal); J96.00 Acute respiratory failure, unspecified whether with hypoxia or hypercapnia; J18.9 Pneumonia, unspecified organism; E87.4 Mixed disorder of acid-base balance; N39.0 Urinary tract infection, site not specified; K56.7 Ileus, unspecified; N17.9 Acute kidney failure, unspecified; K55.9 Vascular disorder of intestine, unspecified; Z66 Do not resuscitate; I10 Essential (primary) hypertension; E11.9 Type 2 diabetes mellitus without complications; N40.0 Benign prostatic hyperplasia without lower urinary tract symptoms; F03.90 Unspecified dementia, unspecified severity, without behavioral disturbance, psychotic disturbance, mood disturbance, and anxiety; K56.41 Fecal impaction; D72.829 Elevated white blood cell count, unspecified; D64.9 Anemia, unspecified; E83.51 Hypocalcemia; R34 Anuria and oliguria; J44.9 Chronic obstructive pulmonary disease, unspecified; Z79.4 Long term (current) use of insulin
CPT/HCPCS: 36415; 36600; 71010-TC; 74176-TC; 80048; 80053; 80076; 81003; 81015; 82150; 82375; 82550; 82553; 82803; 83050; 83605; 83690; 83735; 83880; 84100; 84484; 85025; 85027; 85610; 85730; 86850; 86900; 86901; 87040; 87070; 87081; 87086; 87205; 87633; 87899; 93005; 93010; 94002; 94640; 99285-25